=== PATIENT | male | born 1995 | race Caucasian/White ===

== ENCOUNTER 2017-02-16 21:10 | Emergency (ER) | payer BC, OTHER ==
--- NOTE | 2017-02-16 21:36 | EDM.PDOC ---
ED HPI GENERAL MEDICAL PROBLEM - General Chief Complaint: Head Injury Stated Complaint: HEAD INJURY HIT WITH A FILING CABINET AT WORK Time Seen by Provider: 02/16/17 21:34 - History of Present Illness INITIAL COMMENTS - FREE TEXT/NARRATIVE: 21-year-old male presents emergency room with a head injury and right knee injury. 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 No loss of consciousness he had pain immediately after being struck in head this headache progressively has gotten worse she's been nauseated no vomiting no seizures no dizziness lites are becoming problematic for him and he is developing some photophobia. Time of the injury is slightly over 6-1/2 hours. Posterior Head Pain Score (Numeric/FACES): 6 - Related Data Allergies Allergy/AdvReac Type Severity Reaction Status Date / Time No Known Allergies Allergy Verified 10/21/13 22:01 Home Meds: Home Meds . [No Known Home Meds] 02/16/17 [History] Past Medical History - Past Health History Medical/Surgical History: Denies Medical/Surgical History Musculoskeletal History: Reports: Other (See Below) Other Musculoskeletal History: left 5th digit lac and tendon repair-in [place] Social & Family History - Tobacco Use Smoking Status *Q: Former Smoker Used Tobacco, but Quit: Yes Month Tobacco Last Used: 2 Second Hand Smoke Exposure: No - Caffeine Use Caffeine Use: Reports: Coffee, Soda - Alcohol Use Days Per Week of Alcohol Use: 0 - Recreational Drug Use Recreational Drug Use: No ED ROS GENERAL - Review of Systems Review Of Systems: See Below Constitutional: Reports: No Symptoms HEENT: Reports: No Symptoms Respiratory: Reports: No Symptoms Cardiovascular: Reports: No Symptoms GI/Abdominal: Reports: No Symptoms : Reports: No Symptoms Musculoskeletal: Reports: No Symptoms Skin: Reports: No Symptoms Neurological: Reports: Headache Psychiatric: Reports: No Symptoms Hematologic/Lymphatic: Reports: No Symptoms Immunologic: Reports: No Symptoms ED EXAM, HEAD INJURY - Physical Exam Exam: See Below Exam Limited By: No Limitations General Appearance: Alert, No Apparent Distress Head: Atraumatic, Normocephalic Nexus Criteria: No: Posterior, Midline Cervical Tenderness, Evidence of Intoxication, Altered Level of Consciousness, Focal Neurological Deficit, Painful Distraction Injuries Ears: Normal External Exam, Normal Canal, Normal TMs Nose: Normal Inspection, Normal Mucousa, No Blood Throat/Mouth: Normal Inspection, Normal Lips, Normal Gums, Normal Oropharynx, Normal Voice, No Airway Compromise Neck: Non-Tender, Full Range of Motion, Normal Alignment, Normal Inspection Respiratory: No Respiratory Distress, Lungs Clear, Normal Breath Sounds Cardiovascular: Normal Peripheral Pulses, Regular Rate, Rhythm, No Edema, No Murmur Back Exam: Normal Inspection. No: CVA Tenderness (L), CVA Tenderness (R) Extremities: Other (Examination of his right knee show some posterior discomfort with palpation this area is again uncomfortable with lateral distraction medial distractions nontender no significant discomfort over the medial lateral joint line ACL appears to be intact he will not relax enough for any meniscal testing) Neurologic: No Motor/Sensory Deficits, Normal Mood/Affect, Oriented x 3 - [place] Coma Score Best Eye Response (Alvin): (4) Open Spontaneously Best Verbal Response (Alvin): (5) Oriented Best Motor Response ([place]): (6) Obeys Commands Course - Vital Signs Last Recorded V/S: Last Vital Signs Temp 36.7 C 02/16/17 21:20 Pulse 88 02/16/17 21:20 Resp 20 02/16/17 21:20 BP 133/87 02/16/17 21:20 Pulse Ox 99 02/16/17 21:20 - Orders/Labs/Meds Orders: Active Orders 24 hr Category Date Time Status Head wo Cont [CT] Stat Exams 02/16/17 22:00 Taken Knee 3V Rt [CR] Stat Exams 02/16/17 22:00 Taken - Re-Assessments/Exams Free Text/Narrative Re-Assessment/Exam: 02/17/17 00:30 Patient has done well in the emergency department unfortunately took us a while to get a CT was done and get a result but CT of the head ultimately came back negative x-ray examination per my review of his knee is normal. At this point patient be discharged home Departure - Departure Time of Disposition: 00:31 Disposition: Home, Self-Care 01 Clinical Impression: Head injury, Contusion of right knee - Discharge Information Forms: ED Department Discharge Additional Instructions: Return to the emergency room with any questions problems or worsening symptoms. This evening be awoken every 2 hours to ensure normal behavior and activity. No strenuous activity for the next 48 hours. Work restrictions: No heavy lifting no lifting over 20 pounds. No prolonged time at a keyboard or in front of the computer screen. No climbing of any sort stay on the ground level. Follow-up with your employer's L&I physician on Thursday. If he's not available follow-up in Hospital clinic [phone] - My Orders Last 24 Hours: My Active Orders 02/16/17 22:00 Head wo Cont [CT] Stat Knee 3V Rt [CR] Stat - Assessment/Plan Last 24 Hours: My Active Orders 02/16/17 22:00 Head wo Cont [CT] Stat Knee 3V Rt [CR] Stat
--- NOTE | 2017-02-17 08:04 | CR ---
Right knee: Four views of the right knee were obtained. Comparison: No prior study. Medial and lateral joint compartments are maintained in height. No joint effusion is seen. No acute fracture or other bony abnormality is identified. Impression: 1. No abnormality is appreciated on four-view right knee exam. Diagnostic code #1
--- NOTE | 2017-02-17 08:04 | CT ---
Head CT Technique: Multiple axial sections through the brain were obtained. Intravenous contrast was not utilized. Comparison: No previous intracranial imaging. Findings: Ventricles along with basal cisterns and sulci over the convexities are within normal limits for the patient's age. No abnormal parenchymal densities are seen. No evidence of intracranial hemorrhage. No midline shift or mass effect is seen. Bone window settings were reviewed which show no acute calvarial abnormality. Visualized sinuses are clear. Impression: 1. Nothing acute is identified on noncontrast head CT study. Diagnostic code #1
== END 2017-02-17 01:14 | disposition home or self-care (01) ==
LOC: JD.ED 21:10
DX: S09.90XA Unspecified injury of head, initial encounter (principal); S80.01XA Contusion of right knee, initial encounter; Z87.891 Personal history of nicotine dependence; W20.8XXA Other cause of strike by thrown, projected or falling object, initial encounter
CPT/HCPCS: 70450; 70450-26; 73562-26-RT; 73562-RT; 99283; 99284-25

== ENCOUNTER 2017-09-04 15:34 | Emergency (ER) | payer BC, OTHER ==
[2017-09-04] MEDS ORDERED: Sodium Chloride 0.9% 10 ML Syringe FLUSH PRN (15:59)
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
[2017-09-04] MEDS ORDERED: Sodium Chloride 0.9% 1,000 ML IV SCH (16:15)
[2017-09-04] MEDS ORDERED: Ondansetron 4 MG/2 ML SDV IVPUSH ONE (16:39)
[2017-09-04] MEDS ORDERED: Sodium Chloride 0.9% 1,000 ML IV ONE (17:26)
--- NOTE | 2017-09-07 07:29 | CR ---
Chest: Two views of the chest were obtained. Comparison: No prior chest x-ray. Heart size and mediastinum are normal. Lungs are clear. Bony structures are unremarkable. Impression: 1. Nothing acute is seen on two-view chest x-ray. Diagnostic code #1
== END 2017-09-04 18:47 | disposition home or self-care (01) ==
LOC: JD.ED 15:34
DX: R07.89 Other chest pain (principal); F41.9 Anxiety disorder, unspecified; F17.210 Nicotine dependence, cigarettes, uncomplicated
CPT/HCPCS: 36415; 71046; 80053; 80306; 83735; 85007; 85027; 86677; 96361; 96374; 99285; G0480; J2405; J7040; J7050